=== PATIENT | male | born 1965 | race Caucasian/White ===

== ENCOUNTER 2020-01-10 15:40 | Outpatient (REF) | payer BC, SELFPAY ==
--- NOTE | 2020-01-10 15:54 | XR_ITS ---
EXAMINATION: XR BILATERAL HIPS CLINICAL INFORMATION: Pain COMPARISON: None TECHNIQUE: Each 2 views FINDINGS: Right Hip: Moderate to severe arthritis with joint space loss more prominent in the superolateral aspect, prominent osteophytes. No fracture or dislocation. Left Hip: Moderate to severe arthritis with marked joint space loss more prominent in the superolateral aspect, prominent osteophytes, sclerosis. No fracture or dislocation. Visualized portion of the pelvis appears unremarkable. IMPRESSION: Moderate to severe bilateral hip joint arthritis.
== END 2020-01-10 15:41 | disposition home or self-care (01) ==
LOC: HO.HMGCX 15:40
PROVIDERS: PCP Internal Medicine; Visit Provider Internal Medicine
DX: M25.551 Pain in right hip (principal); M25.552 Pain in left hip
CPT/HCPCS: 73502

== ENCOUNTER → 2020-01-13 10:00 | Outpatient (BNVA) | payer BC, SELFPAY | PROVIDERS: PCP Internal Medicine; Referring Provider Internal Medicine; Visit Provider Orthopaedic Surgery | DX: Z76.89 Persons encountering health services in other specified circumstances (principal) ==

== ENCOUNTER 2020-02-06 12:48 | Outpatient (REF) | payer BC, SELFPAY ==
--- NOTE | 2020-02-06 13:05 | FL_ITS ---
EXAMINATION: FL FLUOROSCOPIC GUIDED HIP INJECTION, BILATERAL CLINICAL INFORMATION: Bilateral hip arthropathy. COMPARISON: Radiographs bilateral hips 01/10/2020 TECHNIQUE: Proper informed consent is obtained from the patient after discussion of the procedure, potential risks and complications, and alternatives including declining the procedure today. Patient was given an opportunity for questions. The patient appeared to understand. The patient consented to the procedure and signed the consent form. RIGHT: Skin is prepped and draped. Local anesthesia is provided using 5 mL lidocaine 1%. Under fluoroscopic guidance, a 22-gauge needle was positioned into the hip joint capsule from an anterior approach. Intracapsular needle tip position is validated with injection of 1.5 mL Omnipaque 300. Subsequently, the patient received an injection consisting of 80 mg methyl prednisolone acetate, 3 mL lidocaine 1% with epinephrine 1:100,000, 3 mL bupivacaine 0.25%. The patient tolerated the procedure well and had no immediate complication. Sterile dressing was placed. Fluoroscopy time: 0.7 minutes DAP: 6.01 Gycm2 Images: 3 LEFT: Patient was repositioned for contralateral left hip injection using new supplies/tray. Skin is prepped and draped. Local anesthesia is provided using 5 mL lidocaine 1%. Under fluoroscopic guidance, a 22-gauge needle was positioned into the hip joint capsule from an anterior approach. Intracapsular needle tip position is validated with injection of 1.5 mL Omnipaque 300. Subsequently, the patient received an injection consisting of 80 mg methyl prednisolone acetate, 3 mL lidocaine 1% with epinephrine 1:100,000, 3 mL bupivacaine 0.25%. The patient tolerated the procedure well and had no immediate complication. Sterile dressing was placed and home instructions reviewed with the patient. Fluoroscopy time: 0.4 minutes DAP: 3.04 Gycm2 Images: 2 Patient to return for follow up with Dr. Álvarez for further assessment and management as planned. FL/FL arthrogram hip RT IMPRESSION: Status post fluoroscopic guided bilateral hip injection of steroid and anesthetic.
--- NOTE | 2020-02-06 13:05 | FL_ITS ---
EXAMINATION: FL FLUOROSCOPIC GUIDED HIP INJECTION, BILATERAL CLINICAL INFORMATION: Bilateral hip arthropathy. COMPARISON: Radiographs bilateral hips 01/10/2020 TECHNIQUE: Proper informed consent is obtained from the patient after discussion of the procedure, potential risks and complications, and alternatives including declining the procedure today. Patient was given an opportunity for questions. The patient appeared to understand. The patient consented to the procedure and signed the consent form. RIGHT: Skin is prepped and draped. Local anesthesia is provided using 5 mL lidocaine 1%. Under fluoroscopic guidance, a 22-gauge needle was positioned into the hip joint capsule from an anterior approach. Intracapsular needle tip position is validated with injection of 1.5 mL Omnipaque 300. Subsequently, the patient received an injection consisting of 80 mg methyl prednisolone acetate, 3 mL lidocaine 1% with epinephrine 1:100,000, 3 mL bupivacaine 0.25%. The patient tolerated the procedure well and had no immediate complication. Sterile dressing was placed. Fluoroscopy time: 0.7 minutes DAP: 6.01 Gycm2 Images: 3 LEFT: Patient was repositioned for contralateral left hip injection using new supplies/tray. Skin is prepped and draped. Local anesthesia is provided using 5 mL lidocaine 1%. Under fluoroscopic guidance, a 22-gauge needle was positioned into the hip joint capsule from an anterior approach. Intracapsular needle tip position is validated with injection of 1.5 mL Omnipaque 300. Subsequently, the patient received an injection consisting of 80 mg methyl prednisolone acetate, 3 mL lidocaine 1% with epinephrine 1:100,000, 3 mL bupivacaine 0.25%. The patient tolerated the procedure well and had no immediate complication. Sterile dressing was placed and home instructions reviewed with the patient. Fluoroscopy time: 0.4 minutes DAP: 3.04 Gycm2 Images: 2 Patient to return for follow up with Dr. Álvarez for further assessment and management as planned. FL/FL arthrogram hip LT IMPRESSION: Status post fluoroscopic guided bilateral hip injection of steroid and anesthetic.
== END 2020-02-06 12:49 | disposition home or self-care (01) ==
LOC: HO.XRAY 12:48
PROVIDERS: Visit Provider Orthopaedic Surgery
DX: M16.0 Bilateral primary osteoarthritis of hip (principal)
CPT/HCPCS: 27093; 73525; J1040; Q9967

== ENCOUNTER 2020-03-22 15:37 | Outpatient (REF) | payer BC, SELFPAY | END 2020-03-22 15:38 | disposition home or self-care (01) | LOC: HO.LAB 15:37 | PROVIDERS: PCP Internal Medicine; Visit Provider Internal Medicine | DX: Z20.828 Contact with and (suspected) exposure to other viral communicable diseases (principal) | CPT/HCPCS: C9803; U0003 ==

== ENCOUNTER 2020-04-19 17:00 | Outpatient (RCR) | payer BC, SELFPAY ==
--- NOTE | 2020-04-20 08:38 | MHC.PT.DC ---
[facility] [place] Office [place] Office [place] Office [address] Usama Frank [address] [phone] F: [phone] F: [phone] F: [phone] F: [phone] Physical Therapy Discharge Report Diagnosis: B hip OA. Date of Surgery: Date of Evaluation: 02/14/20 Date of Discharge: 04/20/20 Treatments to Date: 12 Cancellations to Date: 0 No Shows to Date: 0 Discharge Status: Improved Function Independent with HEP Recommend MD Follow-up Discharge Summary: Paul has been an active and motivated participant in his therapy having met several of his therapeutic goals. He is independent with a hip mobility and stability program as well as self hip mobilizations which offer relief of his pain though this is not lasting and he is following up with orthopedics for next steps. Subjective Lower Extremity Functional Index improved from 50% subjective function to 75%. Electronically signed by: Calin Lucas PT. Please sign and return to therapist. Thank you for your referral.
== END 2020-07-19 16:53 | disposition home or self-care (01) ==
LOC: HO.PTCHIC 17:00
PROVIDERS: PCP Internal Medicine; Visit Provider Orthopaedic Surgery
DX: M16.12 Unilateral primary osteoarthritis, left hip (principal); M16.11 Unilateral primary osteoarthritis, right hip
CPT/HCPCS: 97110; 97140; 97161; 97530

== ENCOUNTER → 2020-05-07 12:55 | Outpatient (BNVA) | payer BC, SELFPAY | PROVIDERS: PCP Internal Medicine; Visit Provider Orthopaedic Surgery ==

== ENCOUNTER 2020-05-29 13:41 | Outpatient (REF) | payer BC, SELFPAY ==
[2020-05-29 11:47] LABS: Estimated Average Glucose 100 mg/dL; Hemoglobin A1c % 5.1 %
[2020-05-29 12:06] LABS: Alanine Aminotransferase 19 U/L (0-40); Albumin Level 4.3 g/dL (3.5-5.0); Alkaline Phosphatase 67 U/L (39-117); Anion Gap 12 (12-20); Aspartate Amino Transferase 17 U/L (5-37); Bilirubin Total 0.7 mg/dL (0.0-1.0); Blood Urea Nitrogen 25 mg/dL (9-16); Calcium 8.8 mg/dL (8.4-10.2); Carbon Dioxide 29 mmol/L (22-29); Chloride 107 mmol/L (96-108); Cholesterol 257 mg/dL; Estimated Glomerular Filt Rate 59; Glucose Fasting 96 mg/dL (60-99); HDL Cholesterol 61 mg/dL; LDL Cholesterol Calculated 136 mg/dl; Potassium 4.3 mmol/L (3.3-5.1); Sodium 144 mmol/L (135-145); Total Protein 6.8 g/dL (6.5-8.0); Triglycerides 304 mg/dL
== END 2020-05-29 13:42 | disposition home or self-care (01) ==
LOC: HO.LNP 13:41
PROVIDERS: Visit Provider Internal Medicine
DX: E78.5 Hyperlipidemia, unspecified (principal); R73.9 Hyperglycemia, unspecified; M16.12 Unilateral primary osteoarthritis, left hip
CPT/HCPCS: 36415; 80053; 80061; 83036

== ENCOUNTER 2020-05-30 12:49 | Outpatient (REF) | payer BC, SELFPAY ==
--- NOTE | ~2020-05-30 | XR_ITS ---
EXAMINATION: XR PELVIS CLINICAL INFORMATION: Arthritis COMPARISON: Previous x-ray December 2019 TECHNIQUE: AP view of the pelvis. FINDINGS: Bone alignment is normal. No fracture or dislocation is seen. There is severe left hip arthritis with joint space narrowing, osteophyte formation and some subchondral cyst formation. There is severe arthritis of the right hip joint with joint space narrowing and osteophyte formation. Bones of the pelvis are unremarkable. Soft tissues are unremarkable. XR/XR pelvis 1-2V IMPRESSION: Severe bilateral hip arthritis.
== END 2020-05-30 12:50 | disposition home or self-care (01) ==
LOC: HO.XRAY 12:49
PROVIDERS: PCP Internal Medicine; Visit Provider Physician Assistant
DX: M16.11 Unilateral primary osteoarthritis, right hip (principal)
CPT/HCPCS: 72170

== ENCOUNTER 2020-06-04 05:56 | Inpatient (IN) | payer BC, SELFPAY ==
--- NOTE | 2020-05-29 | ECG_ITS ---
Test Reason : PREOP Blood Pressure : / mmHG Vent. Rate : 062 BPM Atrial Rate : 062 BPM P-R Int : 160 ms QRS Dur : 086 ms QT Int : 372 ms P-R-T Axes : 030 -26 006 degrees QTc Int : 377 ms Normal sinus rhythm Nonspecific T wave abnormality Abnormal ECG No previous ECGs available Referred By: Merritt Ceja Electronically Signed By:MAGALYS HERNANDEZ
[2020-05-29 11:48] VITALS: BP 141/81; PULSE 88; RESP 20; O2SAT 99; BMI 33.0
--- NOTE | 2020-05-29 12:05 | HO.ANESPROP2 ---
Documented by User: Odette Charlene 05/29/20 12:22 HPI - Anesthesia Eval Consult details Narrative: 55yo M for L JOSE ANTONIO PCP cleared PMFSH Active Problems Active Problems: All Active Problems (Updated 04/27/20 @ 10:04 by Tisha Arreola MD) Hyperglycemia (Acute) Primary localized osteoarthritis of right hip (Acute) Primary localized osteoarthritis of left hip (Acute) Past Medical History Medical History Esophageal ring Hyperglycemia Hyperlipidemia Left leg DVT Family History Family History Mother Diabetes mellitus Father CVD (cardiovascular disease) Brother No problems noted. Sister No problems noted. Daughter No problems noted. Family history of problems with anesthesia: No Surgical History Surgical History History of colonoscopy History of open reduction and internal fixation (ORIF) procedure History of Problems with Anesthesia: No Social History Social History Are you a primary home care and home health aides teacher to a significant other at home: No Do you presently have visiting nurse or other home services: No Smoking Status: Never smoker Use of substances other than those prescribed or required for medical reasons: No Have you been hit, kicked, punched, or otherwise hurt by someone within the past year? If so, by whom?: No Advance Directives: No Advance Directives Information Provided: No Advance Directives on File: No Recently lost weight without trying: No 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 Narrative Narrative: No recent illness. >4 mets with construction work. Meds Allergies Allergy/AdvReac Type Severity Reaction Status Date / Time bee pollen [bee stings] Allergy Mild Swelling Verified 05/30/20 13:17 Home Medications Medication Instructions Recorded Confirmed Last Taken Type diclofenac sodium 75 mg 75 mg PO BID 04/27/20 05/28/20 Unknown History tablet,delayed release Exam Exam Date and Time: May 29, 2020 1205 Pertinent Lab Results Pertinent Lab Results: Laboratory Tests 05/29/20 07:40 Estimat Average Glucose 100 Hemoglobin A1c % 5.1 Airway Mallampati Class: I TM Dist: >3cm Neck ROM: Full Loose/Missing/Broken Teeth: Yes (1 x pulled molar) Heart: RRR Lungs: CTAB Assessment and Plan Assessment Anesthesia Assessment: Anesthesia Plan Discussed and PAT Visit Documented by User: Shahzad Sebastian MD 06/04/20 08:21 [facility] Past Medical History Medical History Esophageal ring Hyperglycemia Hyperlipidemia Left leg DVT Family History Family History Mother Diabetes mellitus Father CVD (cardiovascular disease) Brother No problems noted. Sister No problems noted. Daughter No problems noted. Surgical History Surgical History History of colonoscopy History of open reduction and internal fixation (ORIF) procedure Social History Social History Are you a primary home care and home health aides teacher to a significant other at home: No Do you presently have visiting nurse or other home services: No Smoking Status: Never smoker Use of substances other than those prescribed or required for medical reasons: No Have you been hit, kicked, punched, or otherwise hurt by someone within the past year? If so, by whom?: No Advance Directives: No Advance Directives Information Provided: No Advance Directives on File: No Recently lost weight without trying: No 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 Meds Allergies Allergy/AdvReac Type Severity Reaction Status Date / Time bee pollen [bee stings] Allergy Mild Swelling Verified 05/30/20 13:17 Home Medications Medication Instructions Recorded Confirmed Last Taken Type diclofenac sodium 75 mg 75 mg PO BID 04/27/20 05/28/20 Unknown History tablet,delayed release Assessment and Plan Assessment Anesthesia Assessment: Anesthesia Plan Discussed and Chart Reviewed Final Anesthetic Review NPO: Yes ASA Class: II Final Preanesthetic Review: No Changes in Pt Med Stat, Meds/Allgs Chart Reviewed, Consent Obtained/Reviewed and Anes Risks/Benef Reviewed Patient Risk: Intermediate Procedure Risk: Intermediate Anesthetic Plan Anesthetic Plan: MAC:, Spinal and Regional Block Disposition: Standard PACU
[2020-05-29 13:43] LABS: Hematocrit 43.5 % (42-52); Hemoglobin 14.9 g/dl (14.0-18.0); Mean Corpuscular HGB Conc 34.3 g/dl (31.0-36.0); Mean Corpuscular Hemoglobin 30.3 pg (27.0-33.0); Mean Corpuscular Volume 88.4 fL (80-98); Mean Platelet Volume 10.3 fL (9.4-12.4); Platelet Count 216 X10*3/uL (160-400); Red Blood Count 4.92 X10*6/uL (4.60-5.80); Red Cell Distribution Width 12.3 % (11.0-16.0); White Blood Count 7.8 X10*3/uL (4.8-10.8)
[2020-05-29 15:41] LABS: MRSA Nasal PCR NEGATIVE (Negative); SA Nasal PCR NEGATIVE (Negative)
[2020-06-04] VITALS (11 sets, daily range): BP systolic 92–150; BP diastolic 52–92; PULSE 54–81; RESP 15–20; TEMP 36.2–37.2; O2SAT 95–98
--- NOTE | ~2020-06-04 | XR_ITS ---
EXAMINATION: XR HIP, LEFT CLINICAL INFORMATION: Status post left hip arthroplasty. COMPARISON: None TECHNIQUE: Two views of the left hip. FINDINGS: The patient is status post left hip arthroplasty showing good anatomic alignment with no evidence for hardware malfunction. There is no acute fracture. Moderate subcutaneous air is seen in the adjacent soft tissues. Severe right hip degenerative joint changes are noted. XR/XR hip LT w PEL1V IMPRESSION: Postsurgical changes. No hardware abnormality.
[2020-06-04 06:35] LABS: IDNOW Serial# 9DD0AD1C
[2020-06-04 06:36] LABS: COVID-19 Test Negative (Negative)
[2020-06-04] MEDS: Gabapentin 600 MG TABLET PO (06:36)
[2020-06-04] MEDS: oxyCODONE HCl ER 10 MG TAB.ER.12H PO (06:36)
[2020-06-04] MEDS: Lactated Ringers 1,000 ML 100 ML IVCONT ×2 (06:57→14:35)
--- NOTE | 2020-06-04 07:23 | MHC.SHP ---
Pre-Procedural Eval Section A The patient is an INPATIENT: No Changes since office visit: No Cold of Flu in the past 2 weeks, No New Medical Problems, No Changes in Medication and No Patient answered all questions The History & Physical has been completed within 30 days and I have reviewed it.: Yes Section B Chief Complaint: S/P LEFT HIP ARTHROPLASTY Allergies: Allergies Allergy/AdvReac Type Severity Reaction Status Date / Time bee pollen [bee stings] Allergy Mild Swelling Verified 05/30/20 13:17 Plan I have reviewed the history and physical and performed a pertinent physical examination on my patient. No changes have occurred unless specified.
--- NOTE | 2020-06-04 09:27 | PM.PRCOR ---
Brief Operative Note Date of procedure: 06/04/20 Pre-op diagnosis: oa left hip Post-op diagnosis: same Procedure: LEFT JOSE ANTONIO Surgeon: Sarina Álvarez Brake Drum Lathe Operator: Merritt Ceja Estimated blood loss (mL): 100 Condition: stable Disposition: PACU
--- NOTE | 2020-06-04 11:36 | W.PM.OPN ---
Operative Note Operative Note Date of Service: 06/04/20 Narrative: OPERATIVE PROCEDURE SURGEON: Dr Branch([facility]) [facility] PRESIDENT: Merritt Ceja PAC PREOP DIAGNOSIS: Osteoarthritis left hip POSTOP DIAGNOSIS: Same OPERATIVE PROCEDURE: Left Total hip arthroplasty-[place] accolade II size 4 x 127 femur, 36 mm by standard Biolox head, 56 mm trident 2 acetabulum, 36 mm standard acetabular liner CLINICAL NOTE: This very pleasant individual comes in today in regards to their left hip. That evidence of osteoarthritis. This failed operative management. Therefore after explaining the risks benefits and alternatives and answering all the questions it was mutually agreed upon to carry following procedure. OPERATIVE DETAILS Under a spinal anesthetic the patient was placed in the right lateral decubitus position. The leg was then prepped and draped in standard fashion. Surgical time-out was then performed. Patient is identified. Procedure confirmed. Site confirmed. Medical and allergy history was reviewed. Preoperative antibiotics were given. Standard DVT prophylaxis in place. Trans E make acid was given as well. All was discussed and agreed upon. Standard anterolateral approach to the hip was carried out. Hemostasis was achieved along the way at all points with electrocautery. This brought us down to the level of the fascia billie. This was divided along the length of the incision. The abductor musculature was identified. The anterior 2/3 were divided through tendon directly onto the greater trochanter. Muscle was then elevated off the capsule down to the level of the acetabulum. At this point a capsulectomy was then performed. The hip was then dislocated. Obvious evidence of osteoarthritis. The head and neck was then resected according to preoperative templating. We then turned our attention to the acetabulum. The remainder of the capsule and acetabular look labrum was removed. The soft tissue within the fovea was excised as well. There was a loose body that was removed.. The be curette was used to remove any rib remaining cartilage. Starting with the 55 mm Reamer the acetabulum was sequentially reamed up to a size 56 mm. The trial acetabulum was placed at this point. It demonstrated appropriate fit fill and alignment. Therefore the 56 mm acetabulum was selected and brought up the table. The acetabulum was then thoroughly irrigated. The permanent component was brought up on the table. It was then Press-Fit into place with excellent fit and alignment. A trial liner for the he 36 mm head was selected. It was placed and we turned our attention to the femur. Box osteotome was used to lateralize the canal. T Reamer was then used to sound the canal. The canal was then sequentially broached from a 0 to a size for. It had excellent medial lateral fit and rotational stability. A trial reduction was then performed using the 127 degree collar and the 36 mm standard head. The hip was reduced. It was placed through range of motion. It demonstrated excellent leg lengths. Full range of motion. Stable in all positions. And therefore the size for accolade II, femoral component along with the 36 mm acetabular liner, and the 36 mm by standard head were selected and brought up to the table. The hip was redislocated. The trial components were then all removed. The acetabular was thoroughly irrigated. The permanent liner was tapped into place. Turning our attention back to the femur, it was thoroughly irrigated. The permanent component was brought up to the table. It was then tapped into place with the same fit and fill as the broach had been. The head was brought up. The Rios taper was cleaned and dried. The head tapped into place. Final reduction was then performed which again demonstrated excellent leg length is. Full range of motion. And excellent stability. Therefore proceeded closure. The wound was thoroughly irrigated. The abductor musculature was repaired with 2. Dexon. The fascia billie was closed with 2. Quill suture. The skin was approximated using interrupted 2-0 Dexon. The skin was then closed with danielle. Sterile dressing was then applied. The patient then had the anesthesia reversed. They were transferred supine to the room bed then taken to recovery room in good condition. Intraoperatively a 2nd unit trans of mac acid was given. There was approximately 100 cc of blood loss. No intraop transfusions or complications.
[2020-06-04] MEDS: Ketorolac Tromethamine 15 MG/ML VIAL IVPUSH ×3 (11:44→22:15)
[2020-06-04] MEDS: Acetaminophen 325 MG TABLET 650 MG PO ×3 (11:45→22:15)
[2020-06-04] MEDS: oxyCODONE HCl Immed Release 5 MG TABLET 10 MG PO ×3 (11:45→22:15)
[2020-06-04] MEDS: ceFAZolin Sodium/Dextrose,Iso 2 GM/50 ML PIGGYBACK IV (13:33)
--- NOTE | 2020-06-04 19:07 | PC.NURSE ---
1845 Patient stated he has not voided since coming to unit from OR at 1100. Bladder scanned for 700cc. Straight catheterizing done and emptied 750cc. Patient has no further complaints at this time.
[2020-06-04] MEDS: 0.9 % Sodium Chloride Flush 3 ML SYRINGE IVFLUSH (22:18)
[2020-06-05] MEDS: Lactated Ringers 1,000 ML 100 ML IVCONT (02:34)
[2020-06-05 03:00] VITALS: BP 136/70; PULSE 86; RESP 16; TEMP 36.8; O2SAT 95
[2020-06-05] MEDS: oxyCODONE HCl Immed Release 5 MG TABLET 10 MG PO ×2 (05:31→10:17)
[2020-06-05] MEDS: Acetaminophen 325 MG TABLET 650 MG PO ×2 (05:31→10:17)
[2020-06-05] MEDS: Ketorolac Tromethamine 15 MG/ML VIAL IVPUSH ×2 (05:32→10:17)
[2020-06-05 06:39] LABS: Hematocrit 35.5 % (42-52); Hemoglobin 12.3 g/dl (14.0-18.0)
[2020-06-05 07:00] VITALS: BP 136/69; PULSE 83; RESP 16; TEMP 36.4; O2SAT 96
--- NOTE | 2020-06-05 07:54 | PM.DS ---
DS: Providers Provider Date of Service: 06/05/20 Date of admission: 06/04/20 05:56 Primary care physician: Tisha Arreola MD DS: Diagnosis Discharge Diagnosis (1) Status post left hip replacement: Status: Acute Problem details: Mr. Chua is a 55 yo male who presented to the office with ongoing left hip pain. He was found to have OA of the left hip and had failed all conservative treatment. He continued to have difficulty with ambulation and daily activities; therefore he consented to move forward with left total hip arthroplasty. DS: Medications Discharge Medications Home Medications: Home Medications Medication Instructions Recorded Confirmed diclofenac sodium 75 mg 75 mg PO BID 04/27/20 05/28/20 tablet,delayed release Previous Rx's Medication Instructions Recorded cyclobenzaprine 5 mg tablet 10 mg PO BEDTIME PRN 10 Days #20 05/23/20 tab oxycodone 5 mg PO Q4-6H PRN 7 Days tab 06/05/20 DS: Summary Hospital Course Hospital Course: The patient underwent a successful left total hip arthroplasty, they were transferred to PACU and then to the floor to recover. During their stay, their vitals were stable, afebrile at 98.2. Labs were unremarkable, H/H 12.3/35.5. POD 1 they were started on Aspirin 325mg po bid for DVT ppx, they also received Physical Therapy services twice a day. Prior to discharge, their dressing was changed, incision clean dry and intact, new Aquacel dressing applied and the plan was to be discharged home with VNA services. Status at Discharge Functional status at discharge: uses cane/walker Time Spent with Patient Time attestation: Total time spent providing and/or coordinating discharge services: Discharge coordination time: Less than 30 minutes Physical Exam Vital Signs: Vital Signs: Last Vital Signs Temp 97.5 F 06/05/20 07:00 Pulse 83 06/05/20 07:00 Resp 16 06/05/20 07:00 BP 136/69 06/05/20 07:00 Pulse Ox 96 06/05/20 07:00 Body Mass Index 33.0 Const: General: cooperative, healthy appearing and no acute distress Resp: Effort & Inspection: normal respiratory effort and able to speak in complete sentences Cardio: Rate: regular rate Peripheral pulses: Peripheral pulses 2+ throughout GI: Palpation (GI): Soft to palpation Skin: Lesions: no lesions Rashes: no rashes Extrem: Other: left hip no ecchymosis, redness, or drainage. Aquacell bandage is clean dry and intact. [place] intact. NVI. DS: Data Data Completed and Pending Pending studies at discharge: Pending at discharge 06/04/20 09:15 Surgical [PTH] Routine Labs on day of discharge: Laboratory Results - last 24 hr 06/05/20 05:52 Hgb 12.3 L Hct 35.5 L Discharge Plan Discharge Patient Disposition: Home Health Service Referrals: Sarina Álvarez MD [Physician] - Merritt Ceja PA-C [Physician Weight Analyst] - (06/20/20 at 1:00pm) Discharge Medications: New oxycodone 5 mg Tablet 5 mg PO Q4-6H PRN (Reason: Pain, Severe (Pain Scale 7-10)) 7 Days RF: 0 acetaminophen 325 mg Tablet 650 mg PO Q6H 30 Days Qty: 240 RF: 0 aspirin 325 mg Tablet 325 mg PO BID 28 Days Qty: 56 RF: 0 Discontinued cyclobenzaprine 5 mg tablet 10 mg PO BEDTIME PRN (Reason: muscle spasm) 10 Days Qty: 20 RF: 0 diclofenac sodium 75 mg tablet,delayed release (DR/EC) 75 mg PO BID RF: 0 Discharge Orders: Discharge Order (Routine); Ordered 06/05/20 Ordered By: Lola Amaya Diet: regular diet Activity on Discharge: Use cane or walker Stand Alone Forms: Patient Portal Discharge page Care Plan Goals: restore fxn of the left hip Health Concerns: None Plan of Treatment: Physical Therapy for total hip arthroplasty: no precautions, gait training, ROM, strength Limit stair climbing No showering, no tub bath-keep dressing clean, dry and intact No driving x6 weeks Continue Aspirin 325mg tabs twice a day x 4 weeks Follow up with [facility] Orthopedics in 2 weeks
--- NOTE | 2020-06-05 08:25 | W.MHC.F2F ---
Service Date Service Date: 06/05/20 Reasons for Services Signs and symptoms assessed: Pt. is considered homebound due to recent surgery. Unable to drive, poor balance, poor gait mechanics. Reason for physical therapy: home safety and mobility, therapeutic exercises, restore joint function, gait/transfer training and ADL training Reason for occupational therapy: home safety and mobility, therapeutic exercises, restore joint function, gait/transfer training and ADL training Homebound: Leaving the home is medically contraindicated at this time without the asist of a device and/or another person due th the listed conditions above and below. Reason homebound: unsteady gait / fall risk, leg weakness, pain with ambulation, pain with transfers, poor balance / fall risk and unable to drive Homebound supporting statement: Pt. is considered homebound due to recent surgery. Unable to drive, poor balance, poor gait mechanics. Certification: Based on the above findings, I certify that this patient is confined to the home and needs intermittent prison care, physical therapy and/or speech therapy, or continues to need occupational therapy. The patient is under my care, and I have initiated the establishment of the plan of care. The patient will be followed by a physician who will periodically review the plan of care.
--- NOTE | 2020-06-05 08:36 | MHC.CM.PN ---
EMR REVIEWED, PT ADMITTED W/LEFT TOTAL HIP ARTHROPLASTY, CM MET WITH PT WHO IS ALERT AND ORIENTED X 4, PT REPORTS HE LIVED WITH HIS ,IS INDEPENDENT WITH ALL CARE, USES CANE OR WALKER AND HAS NO OTHER DME, PT REPORTS HE HAS NEVER CHECKED HIS BLOOD SUGAR AND DENIES HAVING DIABETES, PT REPORTS HIS VIK IS HIS HCP, VERIFIES HIS PCP AND PHARMACY. D/C PLAN: HOME TODAY 06/05 W/[facility] FOR ASSISTED AND HOME PT, TO TRANSPORT FOLLOW-UP W/SURGICAL PA ON 06/20/20 AT 1PM PT WILL BE ON ASPIRIN 325MG BID FOR ANTICOAGULANT PCP: RAFAT COSTELLO HCP: VIK HERNANDEZ [phone], COPY REQUESTED BY CM.
[2020-06-05] MEDS: 0.9 % Sodium Chloride Flush 3 ML SYRINGE IVFLUSH (10:17)
[2020-06-05] MEDS: Aspirin 325 MG TABLET PO (10:18)
--- NOTE | 2020-06-05 10:46 | MHC.CM.PN ---
PT DISCHARGING TODAY HOME W/[facility] FOR NURSING HOME AND HOME PT, VIK TO TRANSPORT.
--- NOTE | 2020-06-05 14:30 | HO.POSTANES ---
Post Anesthesia Evaluation Post Anesthesia Evaluation Vital Signs: Vital Signs Temp Pulse Resp BP Pulse Ox 06/05/20 07:00 97.5 F 83 16 136/69 96 06/05/20 03:00 98.2 F 86 16 136/70 95 Anesthesia: Spinal Mental Status: Awake Pain Control: Satisfactory Nausea/Vomiting: None Hydration: Adequate Anesthesia-Related Issues: No Anes. Related Issues
== END 2020-06-05 11:00 | disposition home health service (06) | DRG 301 ==
LOC: HO.SSSA 05:57 → HO.S3 09:56
PROVIDERS: Nurse Practitioner; Physician Assistant; Admitting Provider Orthopaedic Surgery; PCP Internal Medicine; Visit Provider Orthopaedic Surgery
PROC: 0SRB0JA Replacement of Left Hip Joint with Synthetic Substitute, Uncemented, Open Approach (ICD-10-PCS; CPT 27130; principal; 2020-06-04 07:30)
DX: M16.12 Unilateral primary osteoarthritis, left hip (principal); E78.5 Hyperlipidemia, unspecified; Z20.822 Contact with and (suspected) exposure to COVID-19; Z86.718 Personal history of other venous thrombosis and embolism
CPT/HCPCS: 36415; 73502; 80053; 80061; 83036; 85014; 85018; 85027; 86850; 86900; 87635; 87640; 87641; 88304; 88311; 93005; 97110; 97116; 97161; 97165; 97535; C1776; J0131; J0690; J1885; J2250

== ENCOUNTER → 2020-06-20 12:48 | Outpatient (BNVA) | payer BC, SELFPAY | PROVIDERS: PCP Internal Medicine; Visit Provider Physician Assistant ==

== ENCOUNTER 2020-08-21 17:00 | Outpatient (RCR) | payer BC, SELFPAY ==
--- NOTE | 2020-06-29 08:07 | MHC.PT.EP ---
[facility] [place] [facility] [place] [facility] [place] Office [address] Usama Frank [address] [phone] F: [phone] F: [phone] F: [phone] F: [phone] Physical Therapy Plan of Care Date of Evaluation: 06/28/20 Date of Surgery: 06/04/2020 Diagnosis: L THR Assessment: Pt is a 55 y/o male referred to PT s/p L JOSE ANTONIO performed on 06/04/2020 for management following long Hx of L hip pain and dysfunction resulting in decreased tolerance for performing heavy HH chores, walking increased distances, standing > 1 hour, as well as squatting activities secondary to decreased L hip ROM and strength, gait abnormalities, healing process, and pain. Pt is deemed an appropriate candidate to receive skilled PT services to address his physical impairments in order to improve his functional ability. Frequency and Duration: The patient will be seen 2 x / wk x 8 wks. Short Term Goals: in 1 week: initiate HEP. In 3 weeks: Pt will initiate light functional therapeutic activities. Clock And Watch Hands Mounter Goals: In 8 weeks: I with HEP. In 8 weeks: Pt will be able to walk 1 mile w/o difficulty; initial: moderate difficulty. In 8 weeks: improve L hip abd MMT to > 4/5, initial 4-/5. Treatment Plan: Modalities to reduce pain, spasms and effusion. Manual therapy to restore motion and function. Therapeutic exercise to improve strength and flexibility. Neuromuscular re-education for posture and balance. Therapeutic activities to return to functional activities of daily living. Electronically signed by: Calin Lucas PT. Please sign and return to therapist. Thank you for your referral.
--- NOTE | 2020-12-06 10:30 | MHC.PT.DC ---
[facility] [place] Office [place] Office [place] Office [address] Usama Frank 140 [facility] [phone] F: [phone] F: [phone] F: [phone] F: [phone] Physical Therapy Discharge Report Diagnosis: L THR Date of Surgery: 06/04/2020 Date of Evaluation: 06/28/20 Date of Discharge: 08/21/20 Treatments to Date: 12 Cancellations to Date: 0 No Shows to Date: 0 Discharge Status: Achieved Goals Improved Function Independent with HEP Discharge Summary: Electronically signed by: Calin Lucas PT. Please sign and return to therapist. Thank you for your referral.
== END 2020-12-06 10:31 | disposition home or self-care (01) ==
LOC: HO.PTCHIC 17:00
PROVIDERS: PCP Internal Medicine; Visit Provider Physician Assistant
DX: Z47.1 Aftercare following joint replacement surgery (principal); Z96.642 Presence of left artificial hip joint
CPT/HCPCS: 97110; 97140; 97161; 97530

== ENCOUNTER 2020-09-11 08:13 | Outpatient (REF) | payer BC, SELFPAY ==
--- NOTE | ~2020-09-11 | XR_ITS ---
EXAMINATION: XR HIP WITH PELVIS, LEFT CLINICAL INFORMATION: Left hip pain. COMPARISON: Radiographs pelvis and left hip 06/05/2020, radiographs left hip 01/10/2020. TECHNIQUE: AP view pelvis is performed along with AP and frog-lateral projections of the left hip. FINDINGS: There is prior bipolar left hip arthroplasty. The hardware is intact and in expected alignment. There is no fracture, dislocation, destructive process, or osteolysis. The frog-lateral projection shows oval mineralization adjacent to the posterior aspect of the proximal femur measuring 1.2 x 1.9 cm, possibly heterotopic bone or injection granuloma, not previously demonstrated. The visualized pelvis and right hip are stable. Again, there are prominent osteoarthritic changes in the right hip as previously noted. XR/XR hip LT w PEL1V IMPRESSION: 1. Status post left hip arthroplasty. Hardware intact. No destructive process. 2. Benign oval mineralization adjacent to proximal left femur not previously demonstrated under 2 cm, possibly injection granuloma or benign heterotopic mineralization. 3. Osteoarthritic changes right hip similar to prior study.
== END 2020-09-11 08:14 | disposition home or self-care (01) ==
LOC: HO.HOSX 08:13
PROVIDERS: Visit Provider Orthopaedic Surgery
DX: M25.552 Pain in left hip (principal); M79.652 Pain in left thigh; Z96.642 Presence of left artificial hip joint
CPT/HCPCS: 73502

== ENCOUNTER 2021-12-13 09:00 | Day surgery (SDC) | payer BC, SELFPAY ==
[2021-12-10 09:21] VITALS: BMI 31.1
--- NOTE | 2021-12-12 13:12 | HO.ANESPROP2 ---
Documented by User: Odette Chang NP 12/12/21 13:12 HPI - Anesthesia Eval Consult details Narrative: 56yo M for Colonoscopy PMFSH Active Problems Active Problems: All Active Problems (Updated 10/22/21 @ 13:26 by Tisha Arreola MD) Primary localized osteoarthritis of left hip (Acute) Status post left hip replacement (Acute) Annual physical exam (Acute) Hyperlipidemia (Acute) Hip osteoarthritis (Acute) Past Medical History Medical History Esophageal ring Hip osteoarthritis Hyperlipidemia Left leg DVT Primary localized osteoarthritis of right hip Family History Family History Mother Diabetes mellitus Father CVD (cardiovascular disease) Brother No problems noted. Sister No problems noted. Daughter No problems noted. Family history of problems with anesthesia: No Surgical History Surgical History H/O colonoscopy History of colonoscopy History of esophagogastroduodenoscopy (EGD) History of open reduction and internal fixation (ORIF) procedure History of total left hip arthroplasty History of total right hip arthroplasty History of Problems with Anesthesia: No Social History Social History Household Members Other:: , daughter in college Housing: House Are you a primary physician locums urgent care to a significant other at home: No Do you presently have visiting nurse or other home services: No Patient Tobacco Use Status: Never used Tobacco e-Cigarette/Vaping Use: Never Used Use of substances other than those prescribed or required for medical reasons: No Are you DNR?: No Advance Directives: No Advance Directives Information Provided: Yes service: No Current occupational status: employed 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 Cognitive needs: No Hearing needs: No Vision needs: No Meds Allergies Allergy/AdvReac Type Severity Reaction Status Date / Time bee pollen [bee stings] Allergy Mild Swelling Verified 12/13/21 09:48 Exam Exam Date and Time: December 12, 2021 1312 Height,Weight and Vital Signs: Height 5 ft 10.5 in Weight 99.79 kg Assessment and Plan Assessment Anesthesia Assessment: Chart Reviewed Final Anesthetic Review Family History of Problems with Anesthesia: No History of Problems with Anesthesia: No Documented by User: Agusto Chavira MD 12/13/21 10:13 PMFSH Past Medical History Medical History Esophageal ring Hip osteoarthritis Hyperlipidemia Left leg DVT Primary localized osteoarthritis of right hip Family History Family History Mother Diabetes mellitus Father CVD (cardiovascular disease) Brother No problems noted. Sister No problems noted. Daughter No problems noted. Surgical History Surgical History H/O colonoscopy History of colonoscopy History of esophagogastroduodenoscopy (EGD) History of open reduction and internal fixation (ORIF) procedure History of total left hip arthroplasty History of total right hip arthroplasty Social History Social History Household Members Other:: , daughter in college Housing: House Are you a primary physician locums urgent care to a significant other at home: No Do you presently have visiting nurse or other home services: No Patient Tobacco Use Status: Never used Tobacco e-Cigarette/Vaping Use: Never Used Use of substances other than those prescribed or required for medical reasons: No Are you DNR?: No Advance Directives: No Advance Directives Information Provided: Yes service: No Current occupational status: employed 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 Cognitive needs: No Hearing needs: No Vision needs: No Meds Allergies Allergy/AdvReac Type Severity Reaction Status Date / Time bee pollen [bee stings] Allergy Mild Swelling Verified 12/13/21 09:48 Exam Airway Mallampati Class: II TM Dist: >3cm Neck ROM: Full Loose/Missing/Broken Teeth: No Heart: rrr+[id number] Lungs: cta b/l Assessment and Plan Assessment Anesthesia Assessment: Anesthesia Plan Discussed Final Anesthetic Review NPO: Yes ASA Class: II Final Preanesthetic Review: No Changes in Pt Med Stat, Meds/Allgs Chart Reviewed, Consent Obtained/Reviewed and Anes Risks/Benef Reviewed Patient Risk: Low Procedure Risk: Low Assessment/Block/Sedation in SS: Assess/Block/Sedation-SS Anesthetic Plan Anesthetic Plan: MAC: and Agree w/ Assess. and Plan Disposition: Standard PACU
[2021-12-13] MEDS: Ampicillin Sodium 2 GM in 0.9 % Sodium Chloride 100 ML IV (09:40)
[2021-12-13] MEDS: Lactated Ringers 1,000 ML 100 ML IVCONT (09:40)
[2021-12-13 09:46] VITALS: BP 119/90; PULSE 68; RESP 16; TEMP 36.8; O2SAT 96
[2021-12-13] MEDS: Gentamicin Sulfate/NaCl 80 MG/100 ML PIGGYBACK 100 MG IV (09:54)
[2021-12-13 10:55] VITALS: BP 115/59; PULSE 81; RESP 16; TEMP 36.3; O2SAT 96
--- NOTE | 2021-12-13 10:58 | PM.OP ---
Brief Operative Note Date of Service: 12/13/21 Pre-op diagnosis: Screening Post-op diagnosis: other (Colon polyps) Procedure: Colonoscopy to the cecum and TI with bx/removal of polyp at 40cm, and cold snare polypectomy x 2 at 20cm Surgeon: Dick Gutierrez Anesthesia: MAC Was an [employer] used for this Procedure?: No Estimated blood loss (mL): 2.0 Pathology: other (A. Polyp at 40cm B. Polyps at 20cm) Condition: stable Disposition: PACU
[2021-12-13 11:08] VITALS: BP 105/87; PULSE 77; RESP 13; TEMP 36.3; O2SAT 95
--- NOTE | 2021-12-14 01:20 | OP_ITS ---
SURGEON: Dick Gutierrez MD INDICATIONS: The patient presents for evaluation of colorectal cancer screening and personal history of tubular adenoma of the colon. Full consent has been obtained from him for this, including risks of bleeding and perforation. PREOPERATIVE DIAGNOSIS: POSTOPERATIVE DIAGNOSIS: PROCEDURE PERFORMED: Colonoscopy to cecum and terminal ileum with biopsy and removal of polyp, and cold snare polypectomy x2. ESTIMATED BLOOD LOSS: COMPLICATIONS: ANESTHESIA: Monitored anesthesia care. ASSISTANTS: SPECIMENS: PREOPERATIVE DIAGNOSES: 1. Colorectal cancer screening. 2. Personal history of tubular adenoma of the colon. POSTOPERATIVE DIAGNOSES: 1. Colorectal cancer screening. 2. Personal history of tubular adenoma of the colon. 3. Small colon polyps. 4. Mild diverticulosis. 5. Internal hemorrhoids. DESCRIPTION OF PROCEDURE: The patient was placed in the left lateral decubitus position. The digital rectal exam revealed no abnormalities. The Olympus video pediatric colonoscope was entered into the rectum and advanced easily to the cecum. Once in the cecum, I did identify normal-appearing cecal pouch with appendiceal orifice and a normal-appearing ileocecal valve. The terminal ileum was cannulated and appeared normal. The scope was withdrawn back into the colon. The entire cecum and ileocecal valve appeared normal. The scope was slowly withdrawn assessing all mucosal surfaces carefully. Preparation was excellent. At 40 cm, there was a flat approximately 4 or 5 mm polyp, which was biopsied and completely removed with cold biopsy forceps. At 20 cm, there were 2 polyps, each approximately 5 mm in size. These were both removed with cold snare polypectomy and placed in the same container. Post polypectomy, there did not appear to be any residual polyp tissue nor any significant bleeding. I did not visualize any other polyps, colitis, nor angiodysplasia. There was some scattered diverticula in the ascending colon and mild amount of diverticulosis in the sigmoid colon. In the rectum, scope was retroflexed visualizing internal hemorrhoids, but no other pathology. The rectal mucosa appeared normal. Scope was straightened out and withdrawn from the patient. He tolerated the procedure well and was returned to recovery area in stable condition. IMPRESSION: 1. Colon polyps. 2. Diverticulosis. 3. Internal hemorrhoids. PLAN: The results of the biopsy will be checked. I would recommend a repeat colonoscopy in 5 years. He was advised not to use any aspirin or NSAIDs for 1 week. He did receive preprocedure antibiotics for prophylaxis in regard to the recent hip replacement and was given a prescription for amoxicillin to take later today. MD RICCI Leonard/MARITZA / [id number]
== END 2021-12-13 11:43 | disposition home or self-care (01) ==
PROVIDERS: PCP Internal Medicine; Visit Provider Internal Medicine
PROC: 0DJD8ZZ Inspection of Lower Intestinal Tract, Via Natural or Artificial Opening Endoscopic (ICD-10-PCS; CPT 45378; principal; 2021-12-13 10:00)
DX: Z12.11 Encounter for screening for malignant neoplasm of colon (principal); Z86.010 Personal history of colon polyps; D12.5 Benign neoplasm of sigmoid colon; K57.30 Diverticulosis of large intestine without perforation or abscess without bleeding; K64.8 Other hemorrhoids; Z96.643 Presence of artificial hip joint, bilateral; Z86.718 Personal history of other venous thrombosis and embolism; Z79.899 Other long term (current) drug therapy
CPT/HCPCS: 45385; 45380; 88305; J0290; J1580

== ENCOUNTER 2022-05-13 07:19 | Outpatient (REF) | payer BC, SELFPAY ==
[2022-05-13 11:28] LABS: MANUAL DIFF FLAG NO
[2022-05-13 11:29] LABS: Hemoglobin 16.1 g/dl (14.0-18.0); Mean Corpuscular HGB Conc 34.3 g/dl (31.0-36.0); Mean Corpuscular Hemoglobin 30.4 pg (27.0-33.0); Mean Corpuscular Volume 88.7 fL (80.0-98.0); Mean Platelet Volume 10.5 fL (9.4-12.4); Neutrophils Percent Auto 58.3 % (45-73); Platelet Count 230 X10*3/uL (160-400); Red Cell Distribution Width 12.4 % (11.0-16.0); White Blood Count 6.4 X10*3/uL (4.8-10.8)
[2022-05-13 11:30] LABS: Basophils Absolute Auto 0.1 X10*3/uL (0.0-0.2); Basophils Percent Auto 0.8 % (0-2); Eosinophils Absolute Auto 0.2 X10*3/uL (0.0-0.4); Eosinophils Percent Auto 2.7 % (0-4); Imm Gran Abs Auto 0.01 X10*3/uL (0.00-0.03); Imm Gran Pct Auto 0.2 % (0.0-0.4); Lymphocytes Absolute Auto 1.9 X10*3/uL (1.2-4.9); Monocytes Absolute Auto 0.6 X10*3/uL (0.1-1.2); Neutrophils Absolute Auto 3.7 x10*3/uL (2.0-8.3)
[2022-05-13 11:50] LABS: Appearance Urine Clear; Color Urine Yellow; Glucose Urine UA Negative (Negative); Leukocyte Esterase Urine Negative (Negative); Nitrite Urine Negative (Negative); PH 5.5 (5.0-9.0); Urine Blood Negative (Negative); Urine Ketones Negative (Negative); Urine Protein Trace mg/dL (Neg-Trace)
[2022-05-13 11:54] LABS: Bacteria Urine None Seen (None Seen); Hyaline Casts Urine 0-2 /LPF (0-2); RBC Urine 0-2 /HPF (0-2); Squamous Epithelial Cell Urine 0-2 /HPF (0-2); WBC Urine 0-5 /HPF (0-5)
[2022-05-13 12:04] LABS: Alanine Aminotransferase 27 U/L (0-40); Albumin Level 4.6 g/dL (3.5-5.0); Alkaline Phosphatase 83 U/L (39-117); Anion Gap 15 (12-20); Aspartate Amino Transferase 25 U/L (5-37); Bilirubin Total 1.5 mg/dL (0.0-1.0); Blood Urea Nitrogen 15 mg/dL (9-16); Calcium 9.4 mg/dL (8.4-10.2); Carbon Dioxide 27 mmol/L (22-29); Chloride 106 mmol/L (96-108); Cholesterol 296 mg/dL; Estimated Glomerular Filt Rate > 60; Glucose Fasting 119 mg/dL (60-99); HDL Cholesterol 72 mg/dL; LDL Cholesterol Calculated 197 mg/dl; Potassium 4.5 mmol/L (3.3-5.1); Sodium 143 mmol/L (135-145); Triglycerides 136 mg/dL
[2022-05-13 12:13] LABS: PSA,Total (Free>4and<10) 4.16 ng/mL (0.00-4.00)
[2022-05-14 09:47] LABS: Free Prostate Spec Ag 2.4 ng/mL; Percent Free Prostate Spec Ag 55 % (calc) (>25); Prostate Specific Ag Total 4.4 ng/mL (< OR = 4.0)
== END 2022-05-13 07:20 | disposition home or self-care (01) ==
LOC: HO.HMGCLDS 07:19
PROVIDERS: PCP Internal Medicine; Visit Provider Internal Medicine
DX: Z00.00 Encounter for general adult medical examination without abnormal findings (principal); E78.5 Hyperlipidemia, unspecified; Z12.5 Encounter for screening for malignant neoplasm of prostate
CPT/HCPCS: 36415; 80053; 80061; 81001; 84153; 84154; 85025

== ENCOUNTER 2022-07-11 09:57 | Outpatient (REF) | payer BC, SELFPAY ==
[2022-07-11 12:21] LABS: Cholesterol 240 mg/dL; HDL Cholesterol 61 mg/dL; LDL Cholesterol Calculated 160 mg/dl; Triglycerides 96 mg/dL
[2022-07-11 12:29] LABS: Estimated Average Glucose 111 mg/dL; Hemoglobin A1c % 5.5 %
== END 2022-07-11 09:58 | disposition home or self-care (01) ==
LOC: HO.HMGCLDS 09:57
PROVIDERS: PCP Internal Medicine; Visit Provider Internal Medicine
DX: E78.5 Hyperlipidemia, unspecified (principal); R73.9 Hyperglycemia, unspecified
CPT/HCPCS: 36415; 80061; 83036

== ENCOUNTER 2022-10-08 10:56 | Outpatient (REF) | payer BC, SELFPAY ==
[2022-10-08 14:06] LABS: Estimated Average Glucose 105 mg/dL; Hemoglobin A1c % 5.3 %
[2022-10-08 14:18] LABS: Alanine Aminotransferase 24 U/L (0-40); Albumin Level 4.4 g/dL (3.5-5.0); Alkaline Phosphatase 62 U/L (39-117); Anion Gap 14 (12-20); Aspartate Amino Transferase 21 U/L (5-37); Bilirubin Total 0.8 mg/dL (0.0-1.0); Blood Urea Nitrogen 18 mg/dL (9-16); Calcium 9.8 mg/dL (8.4-10.2); Carbon Dioxide 23 mmol/L (22-29); Chloride 107 mmol/L (96-108); Cholesterol 192 mg/dL; Estimated Glomerular Filt Rate > 60; Glucose Fasting 107 mg/dL (60-99); HDL Cholesterol 68 mg/dL; LDL Cholesterol Calculated 109 mg/dl; Potassium 4.2 mmol/L (3.3-5.1); Sodium 140 mmol/L (135-145); Total Protein 6.9 g/dL (6.5-8.0); Triglycerides 75 mg/dL
== END 2022-10-08 10:57 | disposition home or self-care (01) ==
LOC: HO.HMGCLDS 10:56
PROVIDERS: PCP Internal Medicine; Visit Provider Internal Medicine
DX: E78.5 Hyperlipidemia, unspecified (principal); R73.9 Hyperglycemia, unspecified
CPT/HCPCS: 36415; 80053; 80061; 83036

== ENCOUNTER 2022-10-13 12:15 | Outpatient (AMB) | payer BC, SELFPAY ==
[2022-10-13 12:52] VITALS: BP 128/76; PULSE 70; O2SAT 96; BMI 32.0
--- NOTE | 2022-10-13 12:52 | MHC.PC.OV ---
Vital Signs 10/13/22 12:52 Height 5 ft 10.5 in Weight 226 lb BMI 32.0 BP 128/76 Blood Pressure Location Lt brachial Position Sitting Pulse 70 Pulse Source Pulse Oximeter Pulse Oximetry (%) 96 Oxygen Delivery Method Room Air Intake Visit Reasons: 3m follow up Intake Note: Pt is here today for 3 months follow up visit on lab results. Allergies bee pollen [bee stings] Allergy (Mild, Verified 10/13/22 12:55) Swelling Medication List - Last Reconciled 10/13/22 by Tisha Arreola MD rosuvastatin (Crestor) 20 mg PO DAILY Tobacco use date assessed: 07/14/22 Dental Screening Dental Screen Date: 10/13/22 Did you have a dental visit in the last 12 months?: Yes Did you have a dental problem in the last 6 months where you did not have access to dental care?: No Was dental information given to patient?: Patient has dentist HPI 3m follow up HPI Details Patient presents for the follow-up of hyperlipidemia controlled on Crestor COUNT INCLUDES THE [facility] Medical History Esophageal ring Hip osteoarthritis Hyperlipidemia Left leg DVT Primary localized osteoarthritis of right hip Surgical History H/O colonoscopy History of esophagogastroduodenoscopy (EGD) History of open reduction and internal fixation (ORIF) procedure History of total left hip arthroplasty History of total right hip arthroplasty Family History (Updated 10/13/22 @ 12:56 by IGNACIO Brantley) Mother Diabetes mellitus Father CVD (cardiovascular disease) Brother No problems noted. Sister No problems noted. Daughter No problems noted. 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 Dick Vick, Coral Moulton, Darío Rodriguez and colleagues, with an educational aditya from [employer]. Review of Systems Const All systems reviewed & are unremarkable except as noted in HPI and below Reports no additional complaints Eyes Reports no additional complaints ENT Reports no additional complaints Card Reports no additional complaints Resp Reports no additional complaints GI Reports no additional complaints Reports no additional complaints Physical exam (Primary Care) Vital Signs: Last Vital Signs Pulse 70 10/13/22 12:52 BP 128/76 10/13/22 12:52 Pulse Ox 96 10/13/22 12:52 Oxygen Delivery Method Room Air 10/13/22 12:52 BMI result Body Mass Index 32.0 Tobacco/Smoking Status: Tobacco use Status Tobacco use date assessed 07/14/22 10/13/22 12:53 Patient Tobacco Use Status Never used Tobacco 10/13/22 12:53 e-Cigarette/Vaping Use Never Used 10/13/22 12:53 Thrive Assessment: Date of Thrive Assessment Date Thrive assessed 05/13/22 10/13/22 12:53 Const General: no acute distress HENMT Ears: hearing grossly normal bilaterally Throat: Yes posterior oropharynx normal Neck Neck: Yes supple Resp Effort & Inspection: normal respiratory effort Auscultation: clear to auscultation bilaterally Cardio Rhythm: regular rhythm Heart sounds: S1 normal heart sound present and S2 normal heart sound present GI Inspection: Yes normal to inspection Palpation (GI): Soft to palpation Percussion: Yes normal to percussion Auscultation: normal bowel sounds Assessment and Plan Assessment & Plan (1) Hyperlipidemia: Code(s): E78.5 - Hyperlipidemia, unspecified Plan: Continue Crestor low-cholesterol diet ,follow-up for physical in April with a fasting labs before (2) Annual physical exam: Code(s): Z00.00 - Encounter for general adult medical examination without abnormal findings (3) Hyperglycemia: Code(s): R73.9 - Hyperglycemia, unspecified Plan: Continue ADA diet monitor A1c Orders: Orders Comprehensive [place]. Panel Fast 7 Months E78.5 - Hyperlipidemia, unspecified, R73.9 - Hyperglycemia, unspecified, Z00.00 - Encounter for general adult medical examination without abnormal findings Lipid Panel 7 Months E78.5 - Hyperlipidemia, unspecified, R73.9 - Hyperglycemia, unspecified, Z00.00 - Encounter for general adult medical examination without abnormal findings PSA,Total (Free>4and<10) 7 Months E78.5 - Hyperlipidemia, unspecified, R73.9 - Hyperglycemia, unspecified, Z00.00 - Encounter for general adult medical examination without abnormal findings Complete Blood Count Auto Diff 7 Months E78.5 - Hyperlipidemia, unspecified, R73.9 - Hyperglycemia, unspecified, Z00.00 - Encounter for general adult medical examination without abnormal findings UA w Microscopic 7 Months E78.5 - Hyperlipidemia, unspecified, R73.9 - Hyperglycemia, unspecified, Z00.00 - Encounter for general adult medical examination without abnormal findings Coding Level of Care Code Est Pt Level 3 (28039) Diagnoses Hyperlipidemia E78.5 Annual physical exam Z00.00 Hyperglycemia R73.9
== END 2022-10-13 13:12 | disposition home or self-care (01) ==
PROVIDERS: Visit Provider Internal Medicine
DX: E78.5 Hyperlipidemia, unspecified (principal); Z00.00 Encounter for general adult medical examination without abnormal findings; R73.9 Hyperglycemia, unspecified
CPT/HCPCS: 99213